=== PATIENT | female | born 1960 | race Caucasian/White ===

== ENCOUNTER 2023-04-23 21:09 | Emergency (ER) | payer MEDICAID, OTHER ==
[~2023-04-23] VITALS: Ht 157.5 cm; Wt 73.5 kg
[2023-04-23 21:58] VITALS: TEMP 97.6
[2023-04-23 22:14] VITALS: BP 118/73; O2SAT 99
[2023-04-23] MEDS ORDERED: IBUPROFEN 600 MG TABLET ONE (22:23)
[2023-04-23] MEDS ORDERED: IBUPROFEN 600 MG TABLET PO ONE (22:30)
== END 2023-04-23 23:15 | disposition home or self-care (01) ==
LOC: ER 21:30
DX: R07.81 Pleurodynia (principal); Z60.2 Problems related to living alone
CPT/HCPCS: 71100-TC